=== PATIENT | male | born 1975 | race Caucasian/White ===

== ENCOUNTER 2017-07-17 10:59 | Emergency (ER) | payer MEDICAID ==
[~2017-07-17] VITALS: Ht 172.7 cm; Wt 63.5 kg
--- NOTE | 2017-07-17 11:04 | NUR ---
[id number] FROM [address]: L LEG PAIN, NO INJURY. ACHING, 5/10, NON RADIATING. PATIENT AMBULATORY. VSS
[2017-07-17 12:34] VITALS: BP 124/80
--- NOTE | 2017-07-17 12:35 | NUR ---
Patient discharged to home in stable condition. Written and verbal after care instructions given. Patient verbalizes understanding of instruction.
== END 2017-07-17 12:36 | disposition home or self-care (01) ==
LOC: ER 11:00
DX: M72.2 Plantar fascial fibromatosis (principal); Z86.73 Personal history of transient ischemic attack (TIA), and cerebral infarction without residual deficits
CPT/HCPCS: 99283; A4606; Z7610